=== PATIENT | female | born 1985 | race Caucasian/White ===

== ENCOUNTER 2021-06-09 14:10 | Emergency (ER) | payer MEDICAID ==
[~2021-06-09] VITALS: Ht 154.9 cm; Wt 98.9 kg
[2021-06-09 14:21] VITALS: BP 127/69
--- NOTE | 2021-06-09 15:07 | NUR ---
PT AMB TO [facility]. URINE PREGNACY TEST NEGATIVE.
--- NOTE | 2021-06-09 15:09 | NUR ---
BIB [employer] STAFF FOR MEDICAL CLEARANCE FOR TEST. LMP 02/03/21. HOME TESTED POSITIVE 1 WEEK AGO. PMH:ASTHMA
--- NOTE | 2021-06-09 15:27 | NUR ---
Patient being evaluated by DR ARDON at [facility].
--- NOTE | 2021-06-09 16:28 | NUR ---
PT BACK FROM US
[2021-06-09 17:30] LABS: APPEARANCE,URINE CLEAR (CLEAR); BILIRUBIN,URINE NEGATIVE (NEGATIVE); BLOOD, URINE NEGATIVE (NEGATIVE); COLOR,URINE YELLOW (YELLOW); LEUKOCYTE ESTERASE ,URINE NEGATIVE (NEGATIVE); NITRITE, URINE NEGATIVE (NEGATIVE); UGLUCOSE TRACE (NEGATIVE)
[2021-06-09 19:01] VITALS: BP 127/69
--- NOTE | 2021-06-09 19:01 | NUR ---
Patient discharged with v/s stable. Written and verbal after care instructions given and explained. Patient verbalized understanding. Ambulatory with steady gait. All questions addressed prior to discharge. Advised to follow up with PMD.
== END 2021-06-09 19:01 | disposition home or self-care (01) ==
LOC: MED 14:10
DX: O20.0 Threatened abortion (principal); F19.10 Other psychoactive substance abuse, uncomplicated; Z3A.01 Less than 8 weeks gestation of pregnancy; F12.10 Cannabis abuse, uncomplicated; F15.10 Other stimulant abuse, uncomplicated; J45.909 Unspecified asthma, uncomplicated
CPT/HCPCS: 36415; 76817; 81003; 81025; 84702; 86900; 86901; 99284; Q0092